=== PATIENT | female | born 1970 | race Caucasian/White ===

== ENCOUNTER 2017-06-21 06:20 | Inpatient (IN) | payer OTHER ==
[~2017-06-21] VITALS: Ht 162.6 cm; Wt 78.5 kg
[2017-06-21 06:20] VITALS: BP 214/108
[~2017-06-21 06:20] MED LIST: ALBU0.0912 IH; PRON INH
--- NOTE | 2017-06-21 06:23 | NUR ---
PATIENT BIB WHEELCHAIR TO BED 3
[2017-06-21] MEDS ORDERED: NACL 0.9% 1,000 ML IV ONE ×2 (06:35→09:50)
[2017-06-21] MEDS ORDERED: methylPREDNISolone SS 125 MG/2 ML VIAL IVP ONE (06:35)
[2017-06-21] MEDS ORDERED: MAGNESIUM SULFATE 50% 1,000 MG in NACL 0.9% 50 ML IV ONE (06:35)
[2017-06-21] MEDS ORDERED: ALBUTEROL 0.083% 2.5 MG/3 ML NEBU INH ONE ×2 (06:35→06:40)
[2017-06-21] MEDS ORDERED: IPRATROPIUM 0.02% 0.5 MG/2.5 ML NEBU INH ONE ×2 (06:35→06:41)
[2017-06-21] MEDS ORDERED: MAGNESIUM SULFATE 50% 1000 MG/2 ML VIAL IV ONE ×2 (06:42→06:49)
--- NOTE | 2017-06-21 07:14 | NUR ---
PT ON 2L O2 VIA NC, AXO X4, DENIES CP OR DIZZINESS UPON ASSESSMENT. VSS. 22G IV TO LAC IS PATENT AND ASYMPTOMATIC, IVF NS INFUSING. PENDING LABS AND CXR.
[2017-06-21] MEDS ORDERED: ALBUTEROL SULFATE/IPRATROPIU 3 ML SOL IH ONE ×2 (07:55→08:55)
[2017-06-21 08:29] LABS: BASOPHILS % (AUTO) 0.2 % (0.0-2.0); EOSINOPHILS # (AUTO) 0.2 K/uL (0-0.4); EOSINOPHILS % (AUTO) 1.7 % (0.0-4.0); HEMOGLOBIN 14.2 g/dL (12.0-16.0); LYMPHOCYTES # (AUTO) 1.5 K/uL (2.5-16.5); LYMPHOCYTES % (AUTO) 13.7 % (20.5-51.1); MEAN CORPUSCULAR HEMOGLOBIN 31 pg (27-31); MEAN CORPUSCULAR HGB CONC 34 g/dL (33-37); MEAN CORPUSCULAR VOLUME 91.6 fL (80-94); MONOCYTES # (AUTO) 0.7 K/uL (0.8-1.0); MONOCYTES % (AUTO) 6.9 % (1.7-9.3); NEUTROPHILS # (AUTO) 8.2 K/uL (1.8-7.7); NEUTROPHILS % (AUTO) 77.5 % (42.2-75.2); PLATELET COUNT (AUTO) 231 K/uL (140-450); RED BLOOD CELL COUNT(AUTO) 4.58 MIL/uL (4.20-5.40); RED CELL DISTRIBUTION WIDTH 13.2 % (11.6-13.7); WHITE BLOOD COUNT (AUTO) 10.6 K/uL (4.8-10.8)
[2017-06-21 08:36] LABS: ANION GAP 19.1 (8-16); CARBON DIOXIDE 19.6 mmol/L (21-32); CREATININE 0.6 mg/dL (0.6-1.3); POTASSIUM 3.7 mmol/L (3.5-5.1)
[2017-06-21 08:42] LABS: ALBUMIN 3.3 g/dL (3.4-5.0); TOTAL BILIRUBIN 0.2 mg/dL (0.0-1.0)
[2017-06-21 09:51] LABS: APPEARANCE,URINE CLEAR (CLEAR); BILIRUBIN,URINE NEGATIVE (NEGATIVE); BLOOD, URINE 3+ (NEGATIVE); COLOR,URINE YELLOW (YELLOW); LEUKOCYTE ESTERASE ,URINE NEGATIVE (NEGATIVE); NITRITE, URINE NEGATIVE (NEGATIVE); UGLUCOSE NEGATIVE (NEGATIVE)
[2017-06-21 09:53] LABS: RBC,URINE 0-5 (RARE) /HPF (0-5); WBC,URINE 0-5 (RARE) /HPF (0-5)
[2017-06-21] MEDS ORDERED: AZITHROMYCIN 500 MG in DEXTROSE 5% 250 ML IV ONE (09:55)
[2017-06-21] MEDS ORDERED: cefTRIAXone 1,000 MG VIAL ONE (10:21)
[2017-06-21] MEDS ORDERED: AZITHROMYCIN 500 MG INJ VIAL IV ONE (10:22)
[2017-06-21 11:30] VITALS: BP 151/79
--- NOTE | 2017-06-21 11:30 | NUR ---
PATIENT ARRIVED ON MST UNIT VIA ER BED/GURNEY. PATIENT ABLE TO AMBULATE FROM ER GURNEY/BED TO MST BED INDEPENDENTLY WITH STABLE GAIT. NO DISTRESS NOTED. DENIES ANY PAIN. RESPIRATIONS EVEN, UNLABORED, ON ROOM AIR WITH O2 SAT AT 97%. AAOX4, CALM, COOPERATIVE, SKIN COLOR APPROPRIATE TO ETHNICITY, WARM TO TOUCH. LUNGS CTA ON ALL LOBES. ABDOMEN SOFT, OVERWEIGHT. IV SITE INTACT, PATENT, NS BOLUS FROM ER BAG FINISHING. ORIENTED PATIENT TO ROOM AND CALL LIGHT. SAFETY MEASURES IN PLACE, CALL LIGHT WITHIN REACH. WILL CONTINUE TO MONITOR.
--- NOTE | 2017-06-21 11:31 | NUR ---
Patient will be admitted to care of DR TRIMBLE. Admited to [facility]. Will go to room 119B. Belongings list completed. Report to RENETTA RONQUILLO.
--- NOTE | 2017-06-21 13:28 | NUR ---
PATIENT SITTING IN BED WATCHING TV. NO DISTRESS NOTED. DENIES ANY PAIN. RESPIRATIONS EVEN, UNLABORED, ON ROOM AIR. SAFETY MEASURES IN PLACE, CALL LIGHT WITHIN REACH. WILL CONTINUE TO MONITOR.
[2017-06-21] MEDS ORDERED: ALBUTEROL SULFATE/IPRATROPIU 3 ML SOL IH PRN (13:50)
[2017-06-21] MEDS ORDERED: ONDANSETRON 4 MG/2 ML VIAL IVP PRN (14:55)
--- NOTE | 2017-06-21 15:00 | NUR ---
DR. TRIMBLE AT BEDSIDE REVIEWING PLAN OF CARE WITH PATIENT. WILL CONTINUE TO MONITOR.
[2017-06-21 16:00] VITALS: BP 149/77
--- NOTE | 2017-06-21 16:07 | NUR ---
AWAKE AND ALERT C/O SOB WITH COUGHING EPISODE ASSESSMENT DONE HHN PRN THERAPY GIVEN AT THIS C/O NASAL DRYNESS WITH SUPPLEMENTAL OXYGEN USE POST HHN THERAPY ADDED HUMIDIFIER
[2017-06-21] MEDS ORDERED: AZITHROMYCIN 500 MG in NACL 0.9% 250 ML IV SCH (17:00)
--- NOTE | 2017-06-21 17:37 | NUR ---
PATIENT LYING IN BED SLEEPING, AROUSABLE BY VOICE. NO DISTRESS NOTED. DENIES ANY PAIN. CONTINUOUS TO HAVE DRY INTERMITTENT COUGH. SCHEDULED ANTIBIOTIC MEDICATION DUE GIVEN. SAFETY MEASURES IN PLACE, CALL LIGHT WITHIN REACH. WILL CONTINUE TO MONITOR.
--- NOTE | 2017-06-21 17:39 | NUR ---
UNABLE TO REPLACE DRAIN SPONGE PT UNCOOPERATIVE DAUGHTER AT BEDSIDE
--- NOTE | 2017-06-21 18:30 | NUR ---
PATIENT LYING DOWN IN BED SLEEPING, AROUSABLE BY VOICE. NO DISTRESS NOTED. DENIES ANY PAIN. CONDITION UNCHANGED. WILL CONTINUE TO MONITOR.
[2017-06-21] MEDS ORDERED: ALBUTEROL SULFATE/IPRATROPIU 3 ML SOL IH SCH (19:00)
--- NOTE | 2017-06-21 19:30 | NUR ---
GAVE REPORT TO SOFTWARE DESIGN ANALYST NURSE FOR CONTINUITY OF CARE. PATIENT IN STABLE CONDITION.
--- NOTE | 2017-06-21 19:30 | NUR ---
RECEIVED PATIENT LYING BED. CALL LIGHT WITHIN REACH. BED IN LOW POSITION. PLAN OF CARE DISCUSS.
[2017-06-21 20:00] VITALS: BP 166/55
[2017-06-21] MEDS: IPRATROPIUM 0.02% 0.5 MG/2.5 ML NEBU INH SCH (20:10)
[2017-06-21] MEDS: ALBUTEROL 0.083% 2.5 MG/3 ML NEBU INH SCH (20:10)
[2017-06-21] MEDS: methylPREDNISolone SS 125 MG/2 ML VIAL IVP SCH (21:29)
[2017-06-21] MEDS: ACETAMINOPHEN 325 MG TAB PO PRN (22:10)
--- NOTE | 2017-06-21 22:45 | NUR ---
SEEN PATIENT ASLEEP IN BED BUT EASILY AROUSABLE. CALL LIGHT WITHIN REACH. WILL CONTINUE TO MONITOR.
[2017-06-22] VITALS: BP 171/85
[2017-06-22] MEDS: IPRATROPIUM 0.02% 0.5 MG/2.5 ML NEBU INH SCH ×3 (01:34→13:24)
[2017-06-22] MEDS: ALBUTEROL 0.083% 2.5 MG/3 ML NEBU INH SCH ×3 (01:34→13:25)
--- NOTE | 2017-06-22 01:50 | NUR ---
NOTIFIED RESIDENT ABOUT ELEVATED BP AND SHE STATES THAT" I WILL CHECK PATIENT CHART."
--- NOTE | 2017-06-22 03:22 | NUR ---
SEEN PATIENT ASLEEP IN BED. CALL LIGHT WITHIN REACH. WILL CONTINUE TO MONITOR.
[2017-06-22 04:00] VITALS: BP 133/77
[2017-06-22] MEDS ORDERED: cloNIDine 0.1 MG TAB PO PRN (04:25)
[2017-06-22] MEDS: methylPREDNISolone SS 125 MG/2 ML VIAL IVP SCH ×2 (05:20→13:55)
[2017-06-22 06:13] LABS: HEMATOCRIT 41.3 % (36-48); HEMOGLOBIN 13.8 g/dL (12.0-16.0); MEAN CORPUSCULAR HEMOGLOBIN 31 pg (27-31); MEAN CORPUSCULAR HGB CONC 34 g/dL (33-37); MEAN CORPUSCULAR VOLUME 90.8 fL (80-94); PLATELET COUNT (AUTO) 247 K/uL (140-450); RED BLOOD CELL COUNT(AUTO) 4.54 MIL/uL (4.20-5.40); RED CELL DISTRIBUTION WIDTH 13.4 % (11.6-13.7)
[2017-06-22 06:34] LABS: ALBUMIN 3.2 g/dL (3.4-5.0); ANION GAP 16.8 (8-16); CARBON DIOXIDE 21.6 mmol/L (21-32); CREATININE 0.8 mg/dL (0.6-1.3); POTASSIUM 4.4 mmol/L (3.5-5.1); TOTAL BILIRUBIN 0.2 mg/dL (0.0-1.0)
--- NOTE | 2017-06-22 07:25 | NUR ---
ENDORSED PATIENT TO AM SHIFT NURSE FOR CONTINUITY OF CARE. PATIENT IN STABLE CONDITION.
--- NOTE | 2017-06-22 07:26 | NUR ---
RECEIVED REPORT FROM PM NURSE. PT AOX4. PT ON NC 2LPM. NO SI/SX OF RESPIRATORY DISTRESS. PT HAS IV AT T AC, 22G. PT HAS SALINE LOCK AT THIS TIME. SITE CLEAN AND DRY.DISCUSSED PLAN OF CARE WITH PT. PT VERBALISED UNDERSTANDING. BED IN LOWEST POSITION. SIDE RAILS UP X2. CALL LIGHT WITHIN REACH . WILL CONTINUE TO MONITOR.
[2017-06-22 08:00] VITALS: BP 149/80
[2017-06-22 08:19] LABS: LYMPHOCYTES % (MANUAL) 2 % (20-46); MONOCYTES % (MANUAL) 3 % (5-12)
--- NOTE | 2017-06-22 08:25 | NUR ---
REMOVED NASAL CANNULA,TO SEE PT SATURATION ON ROOM AIR. WILL CONTINUE TO MONITOR.
[2017-06-22] MEDS: ACETAMINOPHEN 325 MG TAB PO PRN ×2 (08:29→14:06)
[2017-06-22] MEDS ORDERED: ENOXAPARIN 40 MG/0.4 ML SYR SUBQ SCH (09:00)
--- NOTE | 2017-06-22 10:32 | NUR ---
CM NOTE INITIAL REVIEW FAXED TO [facility] [phone] ISAIAH # [phone]
--- NOTE | 2017-06-22 15:01 | NUR ---
PATIENT HAS BEEN SCREENED AND CATEGORIZED MODERATE NUTRITION RISK. PATIENT WILL BE SEEN WITHIN 3-5 DAYS OF ADMISSION. 06/24/17 - 06/26/[address]
--- NOTE | 2017-06-22 16:30 | NUR ---
PATIENT STATED THAT SHE WANTED TO LEAVE AMA. GAVE HER THE FORM TO SIGN WELL RISK FACTORS INVOLVED IN HER LEAVING AGAINST MEDICAL ADVICE. PATIENT STILL VERBALIZED THAT SHE WANTED TO LEAVE. DR TRIMBLE WAS MADE AWARE OF PATIENT LEAVING AMA. FORM IS SIGNED. IV WAS REMOVED FROM SITE AT THIS TIME. PATIENT TOLERATED WELL. ALL BELONGINGS ARE WITH PATIENT. HERE TO WALK OUT WITH HER.
== END 2017-06-22 16:30 | disposition left against medical advice (07) | DRG 140 ==
LOC: MED 06:20 → MTU 10:58
PROVIDERS: ADMIT Hospitalist; ATTEND Hospitalist
DX: J44.1 Chronic obstructive pulmonary disease with (acute) exacerbation (principal); J96.00 Acute respiratory failure, unspecified whether with hypoxia or hypercapnia; J45.901 Unspecified asthma with (acute) exacerbation; I10 Essential (primary) hypertension; Z88.5 Allergy status to narcotic agent; Z87.891 Personal history of nicotine dependence; Z53.21 Procedure and treatment not carried out due to patient leaving prior to being seen by health care provider
CPT/HCPCS: 36415; 71045; 80053; 81001; 83605; 83735; 83880; 84484; 84702; 85025; 87040; 87081; 94640; 96365; 96367; 96375; 99285; J0456; J0696; J1650; J2930; J3475; J7030; J7060; J7613; J7620; J7644; Q0092

== ENCOUNTER 2017-09-28 03:18 | Emergency (ER) | payer OTHER ==
[~2017-09-28] VITALS: Ht 152.4 cm; Wt 86.2 kg
[2017-09-28 03:25] VITALS: BP 170/87
--- NOTE | 2017-09-28 03:25 | NUR ---
TO BED # 9 VIA W/C, REPORT GIVEN TO AURELIO JACKSON
[2017-09-28] MEDS ORDERED: ALBUTEROL SULFATE/IPRATROPIU 3 ML SOL IH ONE ×2 (03:35→04:35)
--- NOTE | 2017-09-28 03:38 | NUR ---
Respiratory Therapist at bedside for respiratory intervention.
[2017-09-28] MEDS ORDERED: ALBUTEROL 0.083% 2.5 MG/3 ML NEBU INH ONE (03:41)
[2017-09-28] MEDS ORDERED: IPRATROPIUM 0.02% 0.5 MG/2.5 ML NEBU INH ONE (03:42)
--- NOTE | 2017-09-28 03:45 | NUR ---
Dr. Frias evaluating patient at bedside.
[2017-09-28] MEDS ORDERED: predniSONE 20 MG TAB PO ONE (03:50)
[2017-09-28] MEDS ORDERED: KETOROLAC 30 MG/ML VIAL IM ONE (03:50)
--- NOTE | 2017-09-28 04:00 | NUR ---
BIB SELF C/O SOB FOR 2 DAYS AND HOME INHALER AND NEBULIZER "NOT WORKING". BL BS WHEEZES ON INSPIRATION, RR EVEN AND UNLABORED. PT IS AWAKE AND ACTING APPROPRIATE, COUGHING, O2 SAT AT 99% ROOM AIR.
[2017-09-28] MEDS ORDERED: methylPREDNISolone SS 125 MG/2 ML VIAL IM ONE (04:05)
--- NOTE | 2017-09-28 04:40 | NUR ---
Respiratory Therapist at bedside for respiratory intervention.
--- NOTE | 2017-09-28 05:02 | NUR ---
Patient discharged with v/s stable. Written and verbal after care instructions given and explained. Patient alert, oriented and verbalized understanding of instructions. Ambulatory with steady gait. All questions addressed prior to discharge. ID band removed. Patient advised to follow up with PMD. Rx of ALBUTEROL, PREDNISONE, NEBULIZER given. Patient educated on indication of medication including possible reaction and side effects. Opportunity to ask questions provided and answered.
[2017-09-28 05:03] VITALS: BP 166/92
== END 2017-09-28 05:02 | disposition home or self-care (01) ==
LOC: MED 03:18
DX: J45.901 Unspecified asthma with (acute) exacerbation (principal); R03.0 Elevated blood-pressure reading, without diagnosis of hypertension; Z79.899 Other long term (current) drug therapy; Z88.6 Allergy status to analgesic agent
CPT/HCPCS: 94640; 96372; 99284; J1885; J2930; J7512; J7613; J7620; J7644

== ENCOUNTER 2018-07-20 18:38 | Emergency (ER) | payer OTHER ==
[~2018-07-20] VITALS: Ht 152.4 cm; Wt 88.9 kg
[2018-07-20 18:55] VITALS: BP 147/84
--- NOTE | 2018-07-20 19:10 | NUR ---
DR. OMER MADE AWARE OF PATIENTS CONDITION. SEEN PATIENT AT BEDSIDE. R.T. STILL WAITING FOR ORDERS.PATIENT CONTINUE TO MONITOR
[2018-07-20] MEDS ORDERED: methylPREDNISolone SS 125 MG in WATER STERILE 2 ML IV ONE (19:20)
[2018-07-20] MEDS ORDERED: ALBUTEROL 0.083% 2.5 MG/3 ML NEBU INH ONE ×2 (19:20→21:40)
[2018-07-20] MEDS ORDERED: IPRATROPIUM 0.02% 0.5 MG/2.5 ML NEBU INH ONE (19:20)
--- NOTE | 2018-07-20 19:20 | NUR ---
PT BIB DAUGHTER C/O COUGH, SOB, LOWER BACK PAIN AND CHEST DISCOMFORT X2 DAYS. PT STATES PRODUCTIVE COUGH X2 DAYS, PAIN TO LOWER BACK AND CHEST WHEN COUGHING. PT STATES INTERMITTENT SHARP 8/10 PAIN WHEN COUGHING. PT STATES HEMATURIA X2 DAYS, DENIES ITCHING, DYSURIA OR ITCHING. PT TOOK TYLENOL AT HOME W/O RELIEF. --PT COOL, DIAPHORETIC AND INTACT. AUDIBLE WHEEZING TO RIGHT LOBE. PT SPEAKING IN CLEAR AND COMPLETE SENTENCES. LBM: 07/19/18, PT REPORTED SOME CONSTIPATION. PT IN GOWN; IN BED; PT PLACED ON SIZE PAINTER. PENDING ER MD ESPINOZA. PMH: ASTHMA
--- NOTE | 2018-07-20 19:30 | NUR ---
RT AT BEDSIDE FOR TX.
[2018-07-20 19:50] LABS: BASOPHILS % (AUTO) 0.2 % (0.0-2.0); EOSINOPHILS # (AUTO) 0.2 K/uL (0-0.4); EOSINOPHILS % (AUTO) 1.8 % (0.0-4.0); HEMATOCRIT 45.1 % (36-48); HEMOGLOBIN 15.3 g/dL (12.0-16.0); LYMPHOCYTES # (AUTO) 1.3 K/uL (2.5-16.5); LYMPHOCYTES % (AUTO) 11.8 % (20.5-51.1); MEAN CORPUSCULAR HEMOGLOBIN 31 pg (27-31); MEAN CORPUSCULAR HGB CONC 34 g/dL (33-37); MEAN CORPUSCULAR VOLUME 90.6 fL (80-94); MONOCYTES # (AUTO) 0.9 K/uL (0.8-1.0); MONOCYTES % (AUTO) 8.3 % (1.7-9.3); NEUTROPHILS # (AUTO) 8.8 K/uL (1.8-7.7); NEUTROPHILS % (AUTO) 77.9 % (42.2-75.2); PLATELET COUNT (AUTO) 233 K/uL (140-450); RED BLOOD CELL COUNT(AUTO) 4.98 MIL/uL (4.20-5.40); RED CELL DISTRIBUTION WIDTH 13.2 % (11.6-13.7); WHITE BLOOD COUNT (AUTO) 11.3 K/uL (4.8-10.8)
--- NOTE | 2018-07-20 20:22 | NUR ---
V/O FROM DR. OMER FOR 3ML DUONEB BREATHING TX. WILL FOLLOW UP W/ ORDERS, RT TECH MADE AWARE.
[2018-07-20] MEDS ORDERED: ALBUTEROL SULFATE/IPRATROPIU 3 ML SOL IH ONE (20:25)
[2018-07-20 20:28] LABS: ANION GAP 13.3 (8-16); CARBON DIOXIDE 26.6 mmol/L (21-32); POTASSIUM 3.9 mmol/L (3.5-5.1)
[2018-07-20 20:29] LABS: ALBUMIN 3.6 g/dL (3.4-5.0); CREATININE 0.8 mg/dL (0.6-1.3); TOTAL BILIRUBIN 0.5 mg/dL (0.0-1.0)
--- NOTE | 2018-07-20 21:15 | NUR ---
PT STATES FEELING RELIEF AFTER BREATING TX. BREATHING IS EQUAL AND UNLABORED. LUNG SOUNDS CLEAR BL. PT ACTING APPROPRIATLY. PT STATES CHEST PAIN IS 0/10, LOWER BACK PAIN IS STILL PRESENT. ENCOURAGED PT TO GO TO THE BATHROOM AND GIVE URINE SAMPLE. PT AMBULATED W/ STEADY GATE TO BR.
--- NOTE | 2018-07-20 21:42 | NUR ---
RT AT BEDSIDE.
--- NOTE | 2018-07-20 22:30 | NUR ---
Patient discharged with v/s stable. Patient acting appropriatly, patient states she is feeling much better. Patient states 3/10 pain at this time. Written and verbal after care instructions given and explained. Patient alert, oriented and verbalized understanding of instructions. Ambulatory with steady gait. All questions addressed prior to discharge. ID band removed. Patient advised to follow up with PMD. Rx of Albuterol Inhalation Aerosol, Prednisone, and Albuterol Solution given. Patient educated on indication of medication including possible reaction and side effects. Opportunity to ask questions provided and answered.
[2018-07-20 22:31] VITALS: BP 142/76
== END 2018-07-20 22:31 | disposition home or self-care (01) ==
LOC: MED 18:38
DX: J45.901 Unspecified asthma with (acute) exacerbation (principal); Z88.5 Allergy status to narcotic agent; Z79.899 Other long term (current) drug therapy
CPT/HCPCS: 36415; 36600; 71045; 80053; 81002; 81025; 82803; 85025; 94640; 94644; 96374; 99285; J2930; J7613; J7620; J7644; Q0092

== ENCOUNTER 2019-03-03 15:05 | Emergency (ER) | payer OTHER ==
[~2019-03-03] VITALS: Ht 152.4 cm; Wt 83.9 kg
[2019-03-03 15:12] VITALS: BP 148/87
--- NOTE | 2019-03-03 15:14 | NUR ---
SENT TO LOBBY FOR WAITING. NO ROOM AVAILABLE AT THIS TIME.
--- NOTE | 2019-03-03 15:55 | NUR ---
PT C/O SOB, REQUESTING BREATHING TX. PT SPO2 99% ON RA, RR 20 EVEN AND UNLABORED. TEMP 98.7 ORAL. EXPLAINED PT AWAITING BED AVAILABILITY, SENT BACK TO LOBBY AT THIS TIME.
[2019-03-03 17:41] VITALS: BP 161/98
[2019-03-03] MEDS ORDERED: ALBUTEROL SULFATE/IPRATROPIU 3 ML SOL IH ONE (17:45)
--- NOTE | 2019-03-03 17:46 | NUR ---
REASSESS PT. LUNGS CLEAR. ELEVATED BP NOTED. ER AWARE.
--- NOTE | 2019-03-03 17:48 | NUR ---
RT CALLED FOR BREATHING TREATMENT.
--- NOTE | 2019-03-03 18:12 | NUR ---
PT WALKED OUT FROM ER AND SAT IN ER LOBBY.
--- NOTE | 2019-03-03 18:17 | NUR ---
CALLED PATIENT FOR A BED. PT NOT SEEN IN ER LOBBY. PATIENT LEFT WITHOUT BEING SEEN BY DR. LEAL. NO FURTHER CARE PROVIDED FOR PATIENT.
== END 2019-03-03 18:17 | disposition left against medical advice (07) ==
LOC: MED 15:05
DX: J45.909 Unspecified asthma, uncomplicated (principal); F41.9 Anxiety disorder, unspecified; Z88.5 Allergy status to narcotic agent
CPT/HCPCS: 94640; 99281; J7620

== ENCOUNTER 2019-05-23 20:57 | Emergency (ER) | payer OTHER ==
[~2019-05-23] VITALS: Ht 154.9 cm; Wt 86.2 kg
[2019-05-23 21:11] VITALS: BP 162/87
[2019-05-23 21:15] VITALS: BP 162/87
[2019-05-23] MEDS ORDERED: ALBUTEROL 0.083% 2.5 MG/3 ML NEBU INH ONE ×3 (21:23→21:40)
[2019-05-23] MEDS ORDERED: DEXAMETHASONE 10 MG/ML VIAL IM ONE (23:15)
== END 2019-05-23 23:25 | disposition home or self-care (01) ==
LOC: MED 20:57
DX: J45.901 Unspecified asthma with (acute) exacerbation (principal); Z88.5 Allergy status to narcotic agent; Z79.899 Other long term (current) drug therapy
CPT/HCPCS: 71045; 94640; 96372; 99283; J1100; J7613; Q0092

== ENCOUNTER 2019-06-03 18:30 | Emergency (ER) | payer OTHER ==
[~2019-06-03] VITALS: Ht 152.4 cm; Wt 88.9 kg
[2019-06-03 18:34] VITALS: BP 188/108
[2019-06-03] MEDS ORDERED: ALBUTEROL SULFATE/IPRATROPIU 3 ML SOL IH ONE (18:45)
--- NOTE | 2019-06-03 18:54 | NUR ---
48 Y/O F C/C SOB/COUGH X 2 WEEKS. PER PT EXACERBATES WHEN WALKING; WHEN RESTING IMPROVES SLIGHTLY. PT 97% RA. BILATERAL UPPER LUNG SOUNDS CLEAR; BILATERAL LOWER WHEEZES NOTED. PT IN NO RESPIRATORY DISTRESS. CALM/COOPERATIVE. A/OX4. ALLERGIES MORPHINE. HX ASTHMA. RX ALBUTEROL PRN. NO N/V/D. SIDE RAIL X1
--- NOTE | 2019-06-03 18:59 | NUR ---
RT AT BEDSIDE
--- NOTE | 2019-06-03 19:16 | NUR ---
RECIVED REPORT FROM MARYJO JACKSON. CONTINUATION OF CARE.
[2019-06-03] MEDS ORDERED: ALBUTEROL 0.083% 2.5 MG/3 ML NEBU INH ONE (19:20)
[2019-06-03] MEDS ORDERED: predniSONE 20 MG TAB PO ONE (19:20)
--- NOTE | 2019-06-03 19:31 | NUR ---
PRENISONE PO ADMINISTERED
--- NOTE | 2019-06-03 19:42 | NUR ---
PT AT BEDSIDE. AT BEDSIDE.
--- NOTE | 2019-06-03 20:01 | NUR ---
PT STATES" I FEEL A LOT BETTER AFTER THE BREATHING TREATMENT." PT RESPIRTIONS AR EVEN AND UNLABORED. O2SAT % 96 ON RA.
[2019-06-03] MEDS ORDERED: AZITHROMYCIN 250 MG TAB PO ONE (20:15)
[2019-06-03] MEDS ORDERED: BENZONATATE 100 MG CAPLF PO PRN (20:15)
--- NOTE | 2019-06-03 20:40 | NUR ---
TESSALON PERLES AND AZITHROMYOCIN ADMINISTERED PO. PT CHANGED INTO GOWN
--- NOTE | 2019-06-03 21:10 | NUR ---
XRAY AT BEDSIDE.
[2019-06-03 21:30] VITALS: BP 152/78
--- NOTE | 2019-06-03 21:30 | NUR ---
Patient discharged with v/s stable. Written and verbal after care instructions given and explained. Patient alert, oriented and verbalized understanding of instructions. Ambulatory with steady gait. All questions addressed prior to discharge. ID band removed. Patient advised to follow up with PMD. Rx of AZITHROMYCIN, TESSALON PERLES, PREDNISONE given. Patient educated on indication of medication including possible reaction and side effects. Opportunity to ask questions provided and answered.
== END 2019-06-03 21:30 | disposition home or self-care (01) ==
LOC: MED 18:30
DX: J45.909 Unspecified asthma, uncomplicated (principal); Z79.899 Other long term (current) drug therapy; Z88.5 Allergy status to narcotic agent
CPT/HCPCS: 71045; 94640; 99284; J7512; J7613

== ENCOUNTER 2021-07-05 17:16 | Emergency (ER) | payer OTHER ==
[~2021-07-05] VITALS: Ht 152.4 cm; Wt 88.5 kg
[2021-07-05 17:34] VITALS: BP 147/83
--- NOTE | 2021-07-05 17:37 | NUR ---
PT AMBULATORY TO [facility]
[2021-07-05] MEDS ORDERED: DEXAMETHASONE 10 MG/ML VIAL IM ONE (17:45)
[2021-07-05] MEDS ORDERED: IPRATROPIUM 0.02% 0.5 MG/2.5 ML NEBU INH ONE (17:45)
[2021-07-05] MEDS ORDERED: ALBUTEROL 0.083% 2.5 MG/3 ML NEBU INH ONE (17:45)
--- NOTE | 2021-07-05 17:51 | NUR ---
HHN THERAPY AND RESPIRATORY DRYGS GIVEN ORDERED ENCOURAGED PATIENT FOR INTERMITTENT DEEP BREATHING DURING THERAPY
--- NOTE | 2021-07-05 17:54 | NUR ---
50 Y/O FEMALE C/O SOB X3DAYS WITH CHEST PAIN 6/10 DESCRIBES TIGHTNESS WITH COUGH. SPO2 97%, HR 97, RR 24. PMH: ASTHMA ALLERGIES: MORPHINE
[2021-07-05] MEDS ORDERED: ALBU0.0912 IH (17:59)
[2021-07-05] MEDS ORDERED: ALBUTEROL SULFATE/IPRATROPIU 3 ML SOL IH ONE (19:00)
[2021-07-05] MEDS ORDERED: DEXAMETHASONE 10 MG/ML VIAL ONE (19:07)
--- NOTE | 2021-07-05 19:30 | NUR ---
Pt report given to Polly RUTHERFORD. Transfer of care at this time.
--- NOTE | 2021-07-05 19:55 | NUR ---
Respiratory Therapist at bedside for respiratory intervention.
[2021-07-05 20:09] VITALS: BP 144/75
--- NOTE | 2021-07-05 20:09 | NUR ---
Patient discharged with v/s stable. Written and verbal after care instructions given on Asthma exacerbation and explained. Patient alert, oriented and verbalized understanding of instructions. Ambulatory with steady gait. All questions addressed prior to discharge. ID band removed. Patient advised to follow up with PMD. Rx of Albuterol Sulfate given. Patient educated on indication of medication including possible reaction and side effects. Opportunity to ask questions provided and answered.
== END 2021-07-05 20:09 | disposition home or self-care (01) ==
LOC: MED 17:16
DX: J45.901 Unspecified asthma with (acute) exacerbation (principal)
CPT/HCPCS: 94640; 96372; 99285; J1100; J7613; J7644

== ENCOUNTER 2021-07-08 13:40 | Emergency (ER) | payer OTHER ==
[~2021-07-08] VITALS: Ht 152.4 cm; Wt 86.2 kg
[2021-07-08 13:48] VITALS: BP 169/88
--- NOTE | 2021-07-08 14:10 | NUR ---
50 Y/O F C/O SOB XSUNDAY. COUGH AND DIFFICULTY BREATHING. USED INHALER WITH NO RELEIF. CHEST AND BACK 8/10 PAIN. WHEN COUGHING PT STATES PAIN IS AT A 10/10. PAIN IS THROUGH OUT BACK AND SIDES WHEN COUGHING. PT STATES SPUTUM IS GREENISH/YELLOW WITH BLOOD PRESENT SOMETIMES. DENIES PAIN ANYWHERE ELSE. PT RESTING IN THE BED. MEDHX: ASTHMA ALLERGIES: MORPHINE
[2021-07-08] MEDS ORDERED: ALBUTEROL SULFATE/IPRATROPIU 3 ML SOL IH ONE ×2 (14:20→15:15)
[2021-07-08] MEDS ORDERED: ALBUTEROL 0.083% 2.5 MG/3 ML NEBU INH ONE ×2 (14:20→15:15)
[2021-07-08] MEDS ORDERED: predniSONE 20 MG TAB PO ONE (14:20)
[2021-07-08] MEDS ORDERED: KETOROLAC 60 MG/2 ML VIAL IM ONE (14:25)
--- NOTE | 2021-07-08 14:25 | NUR ---
RT BEDSIDE PROVIDING BREATHING TX
[2021-07-08] MEDS ORDERED: PRED20TA5 PO (15:07)
[2021-07-08] MEDS ORDERED: IBUP-2213 PO (15:11)
--- NOTE | 2021-07-08 15:19 | NUR ---
RT BEDSIDE PROVIDING BREATHING TX
[2021-07-08 15:42] VITALS: BP 134/74
[2021-07-08] MEDS ORDERED: PRON INH (15:54)
--- NOTE | 2021-07-08 15:57 | NUR ---
Patient discharged with v/s stable. Written and verbal after care instructions given and explained. Patient alert, oriented and verbalized understanding of instructions. Ambulatory with steady gait. All questions addressed prior to discharge. ID band removed. Patient advised to follow up with PMD. Rx of IBUPROFEN,PREDNISONE, AND ALBUTEROL given. Patient educated on indication of medication including possible reaction and side effects. Opportunity to ask questions provided and answered.
== END 2021-07-08 15:57 | disposition home or self-care (01) ==
LOC: MED 13:40
DX: J45.901 Unspecified asthma with (acute) exacerbation (principal); Z98.890 Other specified postprocedural states; Z79.899 Other long term (current) drug therapy; Z88.5 Allergy status to narcotic agent
CPT/HCPCS: 94640; 96372; 99285; J1885; J7512; J7613

== ENCOUNTER 2021-09-11 15:07 | Emergency (ER) | payer OTHER ==
[~2021-09-11] VITALS: Ht 157.5 cm; Wt 96.2 kg
[~2021-09-11 15:07] MED LIST changes: +IBUP-2213 PO; +PRED20TA5 PO
[2021-09-11 15:13] VITALS: BP 145/75
--- NOTE | 2021-09-11 15:13 | NUR ---
51 Y/O FEMALE BIB SELF C/O OF SOB SATTING AT 98% RA X LAST NIGHT ALLERGY: MORPHINE PMH: ASTHMA
--- NOTE | 2021-09-11 16:28 | NUR ---
TAKEN TO XRAY
[2021-09-11] MEDS ORDERED: ALBU0.0912 IH (16:59)
[2021-09-11] MEDS ORDERED: PRED20TA5 PO (16:59)
[2021-09-11] MEDS ORDERED: PROM118S5 PO (17:00)
--- NOTE | 2021-09-11 17:00 | NUR ---
SEEN BY DR LORENZANA IN OUTSIDE LOBBY
[2021-09-11 17:15] VITALS: BP 125/70
--- NOTE | 2021-09-11 17:22 | NUR ---
Patient discharged with v/s stable. Written and verbal after care instructions given and explained. Patient alert, oriented and verbalized understanding of instructions. Ambulatory with steady gait. All questions addressed prior to discharge. ID band removed. Patient advised to follow up with PMD. Rx of PREDNISONE, ALBUTEROL, PREOMETHAZINE SYRUP given. Patient educated on indication of medication including possible reaction and side effects. Opportunity to ask questions provided and answered.
== END 2021-09-11 17:22 | disposition home or self-care (01) ==
LOC: MED 15:07
DX: U07.1 COVID-19 (principal); J45.901 Unspecified asthma with (acute) exacerbation; R03.0 Elevated blood-pressure reading, without diagnosis of hypertension; Z79.899 Other long term (current) drug therapy; Z79.1 Long term (current) use of non-steroidal anti-inflammatories (NSAID); Z88.5 Allergy status to narcotic agent
CPT/HCPCS: 71045; 99284

== ENCOUNTER 2022-02-17 06:30 | Emergency (ER) | payer OTHER ==
[~2022-02-17] VITALS: Ht 152.4 cm; Wt 81.6 kg
[~2022-02-17 06:30] MED LIST changes: +PROM118S5 PO
[2022-02-17 06:39] VITALS: BP 118/73
--- NOTE | 2022-02-17 06:39 | NUR ---
TO BED AMBULATORY
--- NOTE | 2022-02-17 07:07 | NUR ---
HHN THERAPY GIVEN ORDERED
--- NOTE | 2022-02-17 07:15 | NUR ---
REPORT RECIEVED FROM RENETTA SCHNEIDER FOR TRANSFER OF CARE.
--- NOTE | 2022-02-17 07:33 | NUR ---
Dr. Hightower re-evaluating patient at bedside.
[2022-02-17] MEDS ORDERED: SUD30 PO (07:40)
--- NOTE | 2022-02-17 07:45 | NUR ---
Patient discharged with v/s stable. Written and verbal after care instructions given. Patient alert, oriented and verbalized understanding of instructions. Ambulatory with steady gait. All questions addressed prior to discharge. ID band removed. Patient advised to follow up with PMD. Rx of Sudafed given. Opportunity to ask questions provided and answered.
--- NOTE | 2022-02-17 07:47 | NUR ---
The patient's care was reviewed and supervised by Parviz Bueno RN.
== END 2022-02-17 07:45 | disposition home or self-care (01) ==
LOC: MED 06:30
DX: R09.81 Nasal congestion (principal); J45.909 Unspecified asthma, uncomplicated
CPT/HCPCS: 94640; 99282; 99283

== ENCOUNTER 2023-01-08 16:04 | Emergency (ER) | payer OTHER ==
[~2023-01-08] VITALS: Ht 152.4 cm; Wt 92.1 kg
[~2023-01-08 16:04] MED LIST changes: +SUD30 PO
[2023-01-08 16:18] VITALS: BP 162/85; PULSE 126; RESP 24; TEMP 97.6; O2SAT 97
[2023-01-08] MEDS ORDERED: predniSONE 20 MG TAB PO ONE (16:30)
[2023-01-08] MEDS ORDERED: ALBUTEROL 0.083% 2.5 MG/3 ML NEBU INH ONE ×2 (16:30→17:55)
[2023-01-08] MEDS ORDERED: ALBUTEROL SULFATE/IPRATROPIU 3 ML SOL IH ONE ×2 (16:30→17:55)
[2023-01-08 16:35] VITALS: PULSE 118; RESP 28; O2SAT 97
[2023-01-08] MEDS ORDERED: methylPREDNISolone SS 125 MG in WATER STERILE 2 ML IM ONE (17:10)
[2023-01-08] MEDS ORDERED: WATER STERILE 10 ML MC ONE (17:14)
[2023-01-08] MEDS ORDERED: methylPREDNISolone SS 125 MG/2 ML VIAL ONE (17:14)
[2023-01-08] MEDS ORDERED: KETOROLAC 60 MG/2 ML VIAL IM ONE (17:55)
[2023-01-08] MEDS ORDERED: PSEU120T22 PO (18:36)
[2023-01-08] MEDS ORDERED: PRED20TA5 PO (18:36)
[2023-01-08] MEDS ORDERED: ALBU0.0912 INH (18:36)
[2023-01-08] MEDS ORDERED: IBUP-2213 PO (18:36)
[2023-01-08 18:37] VITALS: PULSE 111; RESP 25; O2SAT 100
[2023-01-08 19:10] VITALS: BP 138/85; PULSE 88; RESP 18; TEMP 97.6; O2SAT 100
== END 2023-01-08 19:10 | disposition home or self-care (01) ==
LOC: MED 16:04
DX: J45.909 Unspecified asthma, uncomplicated (principal); R51.9 Headache, unspecified; Z88.5 Allergy status to narcotic agent; Z79.899 Other long term (current) drug therapy
CPT/HCPCS: 94640; 96372; 99284; J1885; J2930; J7613; J7512

== ENCOUNTER 2023-06-23 15:19 | Emergency (ER) | payer OTHER ==
[~2023-06-23] VITALS: Ht 152.4 cm; Wt 88.9 kg
[~2023-06-23 15:19] MED LIST changes: -ALBU0.0912 IH; +ALBU10.7 INH; +ATRN INH; +AZIT250T11 PO; -IBUP-2213 PO; -PROM118S5 PO; -PRON INH; -SUD30 PO
[2023-06-23 15:32] VITALS: BP 168/88; PULSE 83; RESP 18; TEMP 98.6; O2SAT 98
[2023-06-23] MEDS ORDERED: AMOX1TAB8 PO (15:52)
[2023-06-23] MEDS ORDERED: FLONAS NS (15:52)
[2023-06-23 16:01] VITALS: BP 168/88; PULSE 83; RESP 18; TEMP 98.6; O2SAT 98
== END 2023-06-23 16:01 | disposition home or self-care (01) ==
LOC: MED 15:19
DX: J32.9 Chronic sinusitis, unspecified (principal); Z88.5 Allergy status to narcotic agent; Z79.899 Other long term (current) drug therapy
CPT/HCPCS: 99281

== ENCOUNTER 2023-06-28 20:19 | Emergency (ER) | payer OTHER ==
[~2023-06-28] VITALS: Ht 152.4 cm; Wt 84.4 kg
[~2023-06-28 20:19] MED LIST changes: +AMOX1TAB8 PO; +FLONAS NS
[2023-06-28 21:39] VITALS: BP 158/104; PULSE 112; RESP 22; TEMP 97.2; O2SAT 95
[2023-06-28] MEDS: ALBUTEROL SULFATE/IPRATROPIU 3 ML SOL IH ONE (22:08)
[2023-06-28 22:09] VITALS: PULSE 103; RESP 19; O2SAT 0; O2SAT 100
[2023-06-28] MEDS ORDERED: cefTRIAXone 1,000 MG VIAL ONE (22:47)
[2023-06-28] MEDS ORDERED: LIDOCAINE MPF 1% 5 ML ONE (22:47)
[2023-06-28] MEDS: cefTRIAXone 1,000 MG in LIDOCAINE MPF 1% 2.1 ML IM ONE (22:52)
[2023-06-28] MEDS: predniSONE 20 MG TAB PO ONE (22:53)
[2023-06-28] MEDS: methylPREDNISolone SS 125 MG/2 ML VIAL IM ONE (23:14)
[2023-06-28] MEDS ORDERED: LEVO-481 PO (23:26)
[2023-06-28] MEDS ORDERED: METH4TAB1 PO (23:26)
[2023-06-28] MEDS ORDERED: BUDE1AER IH (23:26)
== END 2023-06-28 23:30 | disposition home or self-care (01) ==
LOC: MED 20:19
DX: J01.90 Acute sinusitis, unspecified (principal); J45.909 Unspecified asthma, uncomplicated; F17.200 Nicotine dependence, unspecified, uncomplicated; Z71.6 Tobacco abuse counseling; Z79.899 Other long term (current) drug therapy; Z88.5 Allergy status to narcotic agent
CPT/HCPCS: 94640; 96372; 99284; J0696; J2001; J2930; J7512